=== PATIENT | female | born 1985 | race Caucasian/White ===

== ENCOUNTER 2017-01-08 23:36 | Emergency (ER) | payer SELFPAY ==
[~2017-01-08] VITALS: Ht 162.6 cm; Wt 68.0 kg
--- NOTE | ~2017-01-08 | CR20 ---
[facility] A Service of [facility] & [facility] RADIOLOGY TEXT RESULTS PATIENT: HASMUKH WILLARD LOCATION: [facility] : 89 UNIT #: [id number] AGE: [address]: Sunitha Landry APRN SEX: F ORDER DR: [id number] [facility] [address] [place], [place] [address] [id number] E MR#: [id number] Acc #: [id number] NAME: HASMUKH WILLARD. : 1985 SEX: F STUDY DATE/TIME: 01/09/2017 2:42 UNIT: [facility] ROOM: STUDY DESCRIPTION: CR Ankle Min 3 Views Lt Attending Physician: Sunitha Landry A.P.R.N. Ordering Physician: Sunitha Landry A.P.R.N. Primary Care Physician: No Primary Care Physician MEDICAL IMAGING REPORT This report is preliminary unless electronic signature is present EXAM Left ankle series INDICATIONS Left ankle pain today. PROCEDURE Three views of the left ankle COMPARISON None FINDINGS Suspected previous calcaneal fracture. Ankle mortise intact. No acute fracture or dislocation. IMPRESSION 1. No acute findings. 2. Suspected prior calcaneal fracture Dictated by... Gil Wilder M.D. THIS IS AN ELECTRONICALLY VERIFIED REPORT Gil Wilder M.D. at 01/09/2017 10:25 PM BRISSA/yeni TD: 01/09/2017 09:34 JOB #: [id number] MEDICAL IMAGING REPORT Page 1 of 1 COPY
--- NOTE | ~2017-01-08 | CR21 ---
[facility] A Service of [facility] & [facility] RADIOLOGY TEXT RESULTS PATIENT: HASMUKH WILLARD LOCATION: [facility] : 87 UNIT #: [id number] AGE: [address]: Sunitha Landry APRN SEX: F ORDER DR: [id number] [facility] [address]. [place], [place] [address] [id number] E MR#: [id number] Acc #: [id number] NAME: HASMUKH WILLARD. : 1985 SEX: F STUDY DATE/TIME: 01/09/2017 2:39 UNIT: [facility] ROOM: STUDY DESCRIPTION: CR Ankle Min 3 Views Rt Attending Physician: Sunitha Landry A.P.R.N. Ordering Physician: Sunitha Landry A.P.R.N. MEDICAL IMAGING REPORT This report is preliminary unless electronic signature is present EXAM Right ankle series INDICATIONS Right ankle pain today. TECHNIQUE 3 views right ankle. COMPARISON None. FINDINGS Postsurgical appearance of the calcaneus. There is no acute fracture or dislocation. IMPRESSION Status post ORIF of the calcaneus. No acute findings. Dictated by... Gil Wilder M.D. THIS IS AN ELECTRONICALLY VERIFIED REPORT Gil Wilder M.D. at 01/09/2017 10:24 PM EED/martha TD: 01/09/2017 09:33 JOB #: [id number] MEDICAL IMAGING REPORT Page 1 of 1 COPY
--- NOTE | ~2017-01-08 | CR126 ---
[facility] A Service of [facility] & [facility] / [facility] RADIOLOGY TEXT RESULTS PATIENT: HASMUKH WILLARD LOCATION: [facility] : 87 UNIT #: [id number] AGE: [address]: Sunitha Landry APRN SEX: F ORDER DR: [id number] [facility] [address] [place], [place] [address] [id number] E MR#: [id number] Acc #: [id number] NAME: HASMUKH WILLARD. : 1985 SEX: F STUDY DATE/TIME: 01/09/2017 2:44 UNIT: [facility] ROOM: STUDY DESCRIPTION: CR Foot Complete Min 3 View Lt Attending Physician: Sunitha Landry A.P.R.N. Ordering Physician: Sunitha Landry A.P.R.N. MEDICAL IMAGING REPORT This report is preliminary unless electronic signature is present EXAM Left foot series INDICATIONS Left foot pain today. TECHNIQUE 3 views left foot. FINDINGS No acute fracture or dislocation. Suspected prior calcaneal fracture. IMPRESSION Suspected previous calcaneal fracture. Correlate with history. No acute findings. Dictated by... Gil Wilder M.D. THIS IS AN ELECTRONICALLY VERIFIED REPORT Gil Wilder M.D. at 01/09/2017 10:25 PM EED/pcl TD: 01/09/2017 09:33 JOB #: [id number] MEDICAL IMAGING REPORT Page 1 of 1 COPY
--- NOTE | ~2017-01-08 | CR127 ---
[facility] A Service of [facility] & [facility] RADIOLOGY TEXT RESULTS PATIENT: HASMUKH WILLARD LOCATION: [facility] : 89 UNIT #: [id number] AGE: [address]: Sunitha Landry APRN SEX: F ORDER DR: [id number] [facility] [address] [place], [place] [address] [id number] E MR#: [id number] Acc #: [id number] NAME: HASMUKH WILLARD. : 1985 SEX: F STUDY DATE/TIME: 01/09/2017 2:44 UNIT: [facility] ROOM: STUDY DESCRIPTION: CR Foot Complete Min 3 View Rt Attending Physician: Sunitha Landry A.P.R.N. Ordering Physician: Sunitha Landry A.P.R.N. MEDICAL IMAGING REPORT This report is preliminary unless electronic signature is present EXAM Right foot series INDICATIONS Right foot pain. TECHNIQUE 3 views of the right foot. COMPARISON None. FINDINGS Prior ORIF of the calcaneus. No acute fracture or dislocation. IMPRESSION Previous ORIF of the calcaneus. No acute findings. Dictated by... Gil Wilder M.D. THIS IS AN ELECTRONICALLY VERIFIED REPORT Gil Wilder M.D. at 01/09/2017 10:25 PM EED/martha TD: 01/09/2017 09:34 JOB #: [id number] MEDICAL IMAGING REPORT Page 1 of 1 COPY
[~2017-01-08 23:36] MED LIST: CIPRO PO; DARVOCET-N 1001 TAB PO; NAPROXEN; ORTHO EVRA1 PATCH.WK; PEN-VEE K PO; PRENATAL VITAMI1 TA3 PO; PRENATAL VITAMI1 TA4 PO; ZITHROMAX PO
== END 2017-01-09 03:40 | disposition home or self-care (01) ==
LOC: CED 23:36 → CFTX 23:36 → CED 23:59 → CFTX 23:59 → CED 01-09 03:40
DX: M25.572 Pain in left ankle and joints of left foot (principal); M25.571 Pain in right ankle and joints of right foot; M79.672 Pain in left foot; M79.671 Pain in right foot; F17.210 Nicotine dependence, cigarettes, uncomplicated
CPT/HCPCS: 29540; 73610; 73630; 99283